=== PATIENT | male | born 1970 ===

== ENCOUNTER 2020-01-06 12:02 | Outpatient (RCR) | payer MEDICAID, SELFPAY | END 2020-01-14 23:59 | disposition home or self-care (01) | LOC: CR 12:02 | PROVIDERS: PCP Family Medicine; Visit Provider Family Medicine ==

== ENCOUNTER 2020-01-27 01:21 | Outpatient (CLI) | payer MEDICAID, SELFPAY ==
[2020-01-28 20:43] LABS: COVID-19 RT-PCR Result NEGATIVE (Negative)
== END 2020-01-27 01:41 ==
PROVIDERS: PCP Family Medicine; Visit Provider Family Medicine
DX: Z11.59 Encounter for screening for other viral diseases (principal); Z01.818 Encounter for other preprocedural examination
CPT/HCPCS: U0003